=== PATIENT | female | born 1980 | race Hispanic/Latino ===

== ENCOUNTER 2020-03-07 12:14 | Emergency (ER) | payer OTHER, SELFPAY | END 2020-03-07 13:20 | disposition home or self-care (01) | LOC: ERS 12:14 | DX: Z20.828 Contact with and (suspected) exposure to other viral communicable diseases (principal); E11.9 Type 2 diabetes mellitus without complications; I10 Essential (primary) hypertension; Z79.899 Other long term (current) drug therapy | CPT/HCPCS: 87635; 99283; U0003 ==

== ENCOUNTER 2020-03-21 19:33 | Emergency (ER) | payer OTHER, SELFPAY ==
[2020-03-22 14:17] LABS: SARS-CoV-2 MS2 Positive; SARS-CoV-2 N Gene Negative; SARS-CoV-2 S Gene Negative; SARS-CoV-2 orf1ab Negative
== END 2020-03-21 20:40 | disposition home or self-care (01) ==
LOC: ERS 19:33
DX: Z20.828 Contact with and (suspected) exposure to other viral communicable diseases (principal); H69.92 Unspecified Eustachian tube disorder, left ear; E11.9 Type 2 diabetes mellitus without complications; I10 Essential (primary) hypertension; Z79.899 Other long term (current) drug therapy
CPT/HCPCS: 87635; 99283; U0003